=== PATIENT | female | born 1945 | race Caucasian/White ===

== ENCOUNTER 2021-03-08 10:55 | Outpatient (CLI) | payer MEDICARE, OTHER | END 2021-03-08 10:56 | disposition home or self-care (01) | LOC: CSHMAMMO 10:55 | PROVIDERS: ATTEND Family Medicine | DX: Z12.31 Encounter for screening mammogram for malignant neoplasm of breast (principal) | CPT/HCPCS: 77063; 77067 ==

== ENCOUNTER 2021-03-29 20:55 | Inpatient (IN) | payer MEDICARE, OTHER ==
[2021-03-29 22:22] LABS: #Monocytes 0.6 10x3/uL (0.0-1.1); #Neutrophils 11.1 10x3/uL (1.5-8.4); %Basophils 0.2 % (0.0-2.0); %Lymphocytes 12.7 % (18.0-47.0); %Monocytes 4.1 % (0.0-10.0); %Neutrophils 82.6 % (40.0-75.0); Hemoglobin 8.3 g/dL (12.0-15.5); Mean Corpuscular HGB CONC 31.8 g/dL (32.0-36.0); Mean Corpuscular Hemoglobin 28.6 pg (27.0-33.0); Mean Platelet Volume 9.8 fl (7.4-10.4); Platelet Count 267 10x3/uL (150-450); RBC Distribution Width 14.3 % (11.5-14.5); White Blood Cell (WBC) Count 13.4 10x3/uL (3.5-10.5)
[2021-03-29] MEDS ORDERED: Ondansetron PF 4 MG/2 ML Vial ONE (22:29)
[2021-03-29 22:37] LABS: ALT (SGPT) 9 U/L (8-55); AST (SGOT) 9 U/L (5-34); Albumin 3.5 g/dL (3.4-4.8); Alkaline Phosphatase 63 U/L (40-110); Anion Gap 16 mmol/L (10-20); BUN (Urea Nitrogen) 59 mg/dL (9.8-20.1); Bilirubin, Total 0.2 mg/dL (0.2-1.2); Calc. Creatinine Clearance 0 mL/min (70-130); Calcium 8.3 mg/dL (7.8-10.44); Carbon Dioxide 20 mmol/L (23-31); Chloride 105 mmol/L (98-107); Glucose 153 mg/dL (83-110); Potassium 4.4 mmol/L (3.5-5.1); Protein, Total 5.5 g/dL (5.8-8.1); Sodium 137 mmol/L (136-145)
[2021-03-29 22:57] LABS: CKMB 1.6 ng/mL (0-6.6)
[2021-03-30] MEDS ORDERED: Pantoprazole 40 MG VIAL ONE (00:24)
[2021-03-30] MEDS ORDERED: Guaifenesin DM 100-10/5 ML UDCUP PO PRN (03:25)
[2021-03-30] MEDS ORDERED: Calcium Carbonate 500 MG ChewTAB PO PRN (03:25)
[2021-03-30] MEDS ORDERED: Acetaminophen 325 MG TAB PO PRN (03:25)
[2021-03-30] MEDS ORDERED: HYDROcodone/Acetaminophen 5/325 mg Tablet PO PRN (03:25)
[2021-03-30] MEDS ORDERED: Zolpidem Tartrate 5 MG TAB PO PRN (03:25)
[2021-03-30] MEDS ORDERED: Sodium Chloride 0.9% 1,000 ML IV SCH (03:30)
[2021-03-30] MEDS ORDERED: Dextrose 5%-Lactated Ringers 1,000 ML IV SCH (03:30)
[2021-03-30] MEDS ORDERED: Pantoprazole 80 MG in Sodium Chloride 0.9% 100 ML IVPB SCH (03:30)
[2021-03-30 04:48] LABS: SARS-CoV-2 NAA Rapid Test Not Detected (NotDetected)
[2021-03-30 05:56] LABS: Anion Gap 11 mmol/L (10-20); BUN (Urea Nitrogen) 46 mg/dL (9.8-20.1); Calc. Creatinine Clearance 0 mL/min (70-130); Calcium 7.7 mg/dL (7.8-10.44); Carbon Dioxide 20 mmol/L (23-31); Chloride 111 mmol/L (98-107); Glucose 127 mg/dL (83-110); Potassium 3.8 mmol/L (3.5-5.1); Sodium 138 mmol/L (136-145)
[2021-03-30 06:06] LABS: #Monocytes 0.6 10x3/uL (0.0-1.1); #Neutrophils 8.4 10x3/uL (1.5-8.4); %Basophils 0.3 % (0.0-2.0); %Lymphocytes 15.7 % (18.0-47.0); %Monocytes 5.8 % (0.0-10.0); %Neutrophils 77.7 % (40.0-75.0); CKMB 1.8 ng/mL (0-6.6); Mean Corpuscular HGB CONC 32.6 g/dL (32.0-36.0); Mean Corpuscular Hemoglobin 28.8 pg (27.0-33.0); Mean Corpuscular Volume 88.5 fl (81.6-98.3); Mean Platelet Volume 9.8 fl (7.4-10.4); Platelet Count 225 10x3/uL (150-450); RBC Distribution Width 14.3 % (11.5-14.5); Red Blood Cell (RBC) Count 2.43 10x6/uL (3.90-5.03); White Blood Cell (WBC) Count 10.9 10x3/uL (3.5-10.5)
[2021-03-30 10:22] LABS: CKMB 3.1 ng/mL (0-6.6)
[2021-03-30 14:18] LABS: #Monocytes 0.7 10x3/uL (0.0-1.1); #Neutrophils 6.7 10x3/uL (1.5-8.4); %Basophils 0.4 % (0.0-2.0); %Eosinophils 0.1 % (0.0-6.0); %Lymphocytes 20.2 % (18.0-47.0); %Neutrophils 71.9 % (40.0-75.0); Hemoglobin 7.8 g/dL (12.0-15.5); Mean Corpuscular HGB CONC 32.2 g/dL (32.0-36.0); Mean Corpuscular Hemoglobin 28.9 pg (27.0-33.0); Mean Corpuscular Volume 89.6 fl (81.6-98.3); Mean Platelet Volume 9.6 fl (7.4-10.4); Platelet Count 221 10x3/uL (150-450); RBC Distribution Width 14.6 % (11.5-14.5); White Blood Cell (WBC) Count 9.3 10x3/uL (3.5-10.5)
[2021-03-30 14:54] LABS: CKMB 7.9 ng/mL (0-6.6)
[2021-03-30 16:05] LABS: #Monocytes 0.6 10x3/uL (0.0-1.1); #Neutrophils 6.9 10x3/uL (1.5-8.4); %Basophils 0.3 % (0.0-2.0); %Eosinophils 0.1 % (0.0-6.0); %Lymphocytes 21.3 % (18.0-47.0); %Monocytes 6.4 % (0.0-10.0); %Neutrophils 71.3 % (40.0-75.0); Hemoglobin 7.7 g/dL (12.0-15.5); Mean Corpuscular HGB CONC 32.1 g/dL (32.0-36.0); Mean Corpuscular Hemoglobin 29.1 pg (27.0-33.0); Mean Corpuscular Volume 90.6 fl (81.6-98.3); Mean Platelet Volume 9.8 fl (7.4-10.4); Platelet Count 222 10x3/uL (150-450); RBC Distribution Width 14.7 % (11.5-14.5); Red Blood Cell (RBC) Count 2.65 10x6/uL (3.90-5.03); White Blood Cell (WBC) Count 9.6 10x3/uL (3.5-10.5)
[2021-03-30] MEDS: Dextrose 5 % And 0.9 % NaCl 1,000 ML IV SCH (17:41)
[2021-03-30] MEDS: Pantoprazole 80 MG in Sodium Chloride 0.9% 100 ML IVPB SCH (20:38)
[2021-03-30 21:08] VITALS: BMI 42.0
[2021-03-30 21:10] LABS: #Monocytes 0.7 10x3/uL (0.0-1.1); #Neutrophils 7.2 10x3/uL (1.5-8.4); %Basophils 0.4 % (0.0-2.0); %Eosinophils 0.1 % (0.0-6.0); %Lymphocytes 21.3 % (18.0-47.0); %Monocytes 6.7 % (0.0-10.0); Mean Corpuscular HGB CONC 33.5 g/dL (32.0-36.0); Mean Corpuscular Hemoglobin 29.7 pg (27.0-33.0); Mean Corpuscular Volume 88.8 fl (81.6-98.3); Mean Platelet Volume 9.6 fl (7.4-10.4); Platelet Count 222 10x3/uL (150-450); RBC Distribution Width 14.8 % (11.5-14.5); Red Blood Cell (RBC) Count 2.69 10x6/uL (3.90-5.03); White Blood Cell (WBC) Count 10.1 10x3/uL (3.5-10.5)
[2021-03-30] MEDS ORDERED: Metoprolol Tartrate 25 MG TAB PO SCH (21:30)
[2021-03-30 21:35] LABS: CKMB 18.6 ng/mL (0-6.6)
[2021-03-31 01:46] LABS: CKMB 19.5 ng/mL (0-6.6)
[2021-03-31] MEDS: Dextrose 5 % And 0.9 % NaCl 1,000 ML IV SCH (04:06)
[2021-03-31] MEDS: Pantoprazole 80 MG in Sodium Chloride 0.9% 100 ML IVPB SCH ×2 (06:19→21:25)
[2021-03-31] MEDS ORDERED: Metoprolol Tartrate 25 MG TAB PO SCH ×2 (06:45→09:00)
[2021-03-31 07:01] LABS: #Monocytes 0.7 10x3/uL (0.0-1.1); #Neutrophils 5.4 10x3/uL (1.5-8.4); %Basophils 0.5 % (0.0-2.0); %Eosinophils 0.5 % (0.0-6.0); %Lymphocytes 26.2 % (18.0-47.0); %Monocytes 8.1 % (0.0-10.0); Hemoglobin 8.2 g/dL (12.0-15.5); Mean Corpuscular HGB CONC 33.3 g/dL (32.0-36.0); Mean Corpuscular Hemoglobin 29.9 pg (27.0-33.0); Mean Corpuscular Volume 89.8 fl (81.6-98.3); Mean Platelet Volume 9.9 fl (7.4-10.4); Platelet Count 221 10x3/uL (150-450); Red Blood Cell (RBC) Count 2.74 10x6/uL (3.90-5.03); White Blood Cell (WBC) Count 8.4 10x3/uL (3.5-10.5)
[2021-03-31 07:24] LABS: Anion Gap 15 mmol/L (10-20); BUN (Urea Nitrogen) 20 mg/dL (9.8-20.1); Calc. Creatinine Clearance 89 mL/min (70-130); Calcium 7.8 mg/dL (7.8-10.44); Carbon Dioxide 19 mmol/L (23-31); Chloride 112 mmol/L (98-107); Glucose 122 mg/dL (83-110); Magnesium 2.1 mg/dL (1.6-2.6); Potassium 3.8 mmol/L (3.5-5.1); Sodium 142 mmol/L (136-145)
[2021-03-31] MEDS ORDERED: Midazolam HCl 2 mg/2 ml Vial ONE (13:54)
[2021-03-31] MEDS ORDERED: PROPOFOL 20 ML ONE (13:54)
[2021-03-31] MEDS: Ondansetron PF 4 MG/2 ML Vial IVP PRN (18:30)
[2021-03-31] MEDS: Atorvastatin Calcium 40 MG TAB PO SCH (21:25)
[2021-03-31] MEDS: Metoprolol Tartrate 25 MG TAB PO SCH (21:26)
[2021-03-31] MEDS: Pantoprazole 40 MG VIAL IVP SCH (21:38)
[2021-04-01] MEDS: Ondansetron PF 4 MG/2 ML Vial IVP PRN (00:49)
[2021-04-01] MEDS: Dextrose 5 % And 0.9 % NaCl 1,000 ML IV SCH ×3 (00:52→17:28)
[2021-04-01 05:47] LABS: Anion Gap 17 mmol/L (10-20); BUN (Urea Nitrogen) 15 mg/dL (9.8-20.1); Calc. Creatinine Clearance 102 mL/min (70-130); Carbon Dioxide 17 mmol/L (23-31); Chloride 113 mmol/L (98-107); Glucose 126 mg/dL (83-110); Sodium 143 mmol/L (136-145)
[2021-04-01 05:58] LABS: #Basophils 0.1 10x3/uL (0.0-0.2); #Neutrophils 14.9 10x3/uL (1.5-8.4); %Basophils 0.6 % (0.0-2.0); %Eosinophils 0.1 % (0.0-6.0); %Lymphocytes 9.5 % (18.0-47.0); %Monocytes 5.8 % (0.0-10.0); %Neutrophils 82.9 % (40.0-75.0); Hemoglobin 9.4 g/dL (12.0-15.5); Mean Corpuscular Hemoglobin 29.6 pg (27.0-33.0); Mean Corpuscular Volume 95.3 fl (81.6-98.3); Mean Platelet Volume 10.1 fl (7.4-10.4); Platelet Count 216 10x3/uL (150-450); RBC Distribution Width 15.3 % (11.5-14.5); Red Blood Cell (RBC) Count 3.18 10x6/uL (3.90-5.03)
[2021-04-01 06:28] LABS: Potassium 3.9 mmol/L (3.5-5.1)
[2021-04-01] MEDS ORDERED: FLU VACC QS2021-22(65YR UP)/PF 240 MCG/0.7 ML SYRINGE IM ONE (09:00)
[2021-04-01] MEDS: Metoprolol Tartrate 25 MG TAB PO SCH ×2 (09:13→21:11)
[2021-04-01] MEDS ORDERED: Piperacillin/Tazobactam 3.375 GM in Sodium Chloride 0.9% 100 ML IVPB SCH ×2 (09:30→12:00)
[2021-04-01] MEDS ORDERED: Vancomycin 1 GM in Premix Bag 1 BAG IVPB SCH (09:30)
[2021-04-01] MEDS: Pantoprazole 40 MG VIAL IVP SCH ×2 (09:39→21:12)
[2021-04-01] MEDS ORDERED: VANCOMYCIN 2 GRAM/400 ML BAG 2 GM in Premix Bag 1 BAG IVPB SCH (10:00)
[2021-04-01] MEDS: Piperacillin/Tazobactam 3.375 GM in Sodium Chloride 0.9% 100 ML IVPB SCH (16:01)
[2021-04-01] MEDS: Atorvastatin Calcium 40 MG TAB PO SCH (21:11)
[2021-04-02] MEDS: Piperacillin/Tazobactam 3.375 GM in Sodium Chloride 0.9% 100 ML IVPB SCH ×3 (00:31→16:35)
[2021-04-02] MEDS: Dextrose 5 % And 0.9 % NaCl 1,000 ML IV SCH ×3 (04:47→12:28)
[2021-04-02 06:24] LABS: Bilirubin Neg (Negative); Blood, Urine 150 (Negative); Clarity Cloudy (Clear); Glucose, Urine (Dipstick) Normal (Negative); Ketone, Urine Negative (Negative); Leukocyte Negative (Negative); Nitrite Negative (Negative); Protein, Urine (Dipstick) 15 mg/dl (Neg-Trace); Specific Gravity, Urine 1.025 (1.002-1.036); Urobilinogen Normal mg/dL (Less than 2)
[2021-04-02 06:35] LABS: Bacteria/HPF Rare-Few HPF (None Seen); RBC/HPF 0-3 HPF (0-3); Squamous Epithelial 0-3 HPF (0-3); Urine Culture Reflex No No; WBC/HPF 0-3 HPF (0-3)
[2021-04-02 06:45] LABS: Anion Gap 12 mmol/L (10-20); BUN (Urea Nitrogen) 10 mg/dL (9.8-20.1); Calc. Creatinine Clearance 104 mL/min (70-130); Calcium 7.4 mg/dL (7.8-10.44); Carbon Dioxide 20 mmol/L (23-31); Chloride 111 mmol/L (98-107); Glucose 126 mg/dL (83-110); Magnesium 1.9 mg/dL (1.6-2.6); Potassium 3.3 mmol/L (3.5-5.1); Sodium 140 mmol/L (136-145)
[2021-04-02 07:43] LABS: #Monocytes 1.2 10x3/uL (0.0-1.1); #Neutrophils 14.8 10x3/uL (1.5-8.4); %Basophils 0.2 % (0.0-2.0); %Eosinophils 0.2 % (0.0-6.0); %Lymphocytes 11.8 % (18.0-47.0); %Monocytes 6.7 % (0.0-10.0); %Neutrophils 80.7 % (40.0-75.0); Hemoglobin 8.2 g/dL (12.0-15.5); Mean Corpuscular HGB CONC 32.8 g/dL (32.0-36.0); Mean Corpuscular Hemoglobin 29.5 pg (27.0-33.0); Mean Corpuscular Volume 89.9 fl (81.6-98.3); Mean Platelet Volume 10.8 fl (7.4-10.4); Platelet Count 169 10x3/uL (150-450); RBC Distribution Width 15.6 % (11.5-14.5); Red Blood Cell (RBC) Count 2.78 10x6/uL (3.90-5.03); White Blood Cell (WBC) Count 18.3 10x3/uL (3.5-10.5)
[2021-04-02] MEDS: Pantoprazole 40 MG VIAL IVP SCH ×2 (08:29→22:21)
[2021-04-02] MEDS: Metoprolol Tartrate 25 MG TAB PO SCH ×2 (08:29→22:20)
[2021-04-02] MEDS ORDERED: Potassium Chloride 20 MEQ TAB PO SCH ×3 (09:00→16:00)
[2021-04-02] MEDS ORDERED: Vancomycin 1.5 GRAM/300 ML BAG 1.5 GM in Premix Bag 1 BAG IVPB SCH (11:00)
[2021-04-02] MEDS: Atorvastatin Calcium 40 MG TAB PO SCH (22:20)
[2021-04-03] MEDS: Piperacillin/Tazobactam 3.375 GM in Sodium Chloride 0.9% 100 ML IVPB SCH ×2 (00:48→09:18)
[2021-04-03 05:00] LABS: #Basophils 0.1 10x3/uL (0.0-0.2); #Eosinphils 0.2 10x3/uL (0.0-0.5); #Monocytes 0.7 10x3/uL (0.0-1.1); #Neutrophils 10.3 10x3/uL (1.5-8.4); %Basophils 0.4 % (0.0-2.0); %Eosinophils 1.3 % (0.0-6.0); %Lymphocytes 16.7 % (18.0-47.0); %Monocytes 4.9 % (0.0-10.0); %Neutrophils 76.2 % (40.0-75.0); Hemoglobin 7.6 g/dL (12.0-15.5); Mean Corpuscular HGB CONC 32.6 g/dL (32.0-36.0); Mean Corpuscular Hemoglobin 29.5 pg (27.0-33.0); Mean Corpuscular Volume 90.3 fl (81.6-98.3); Mean Platelet Volume 9.6 fl (7.4-10.4); Platelet Count 221 10x3/uL (150-450); RBC Distribution Width 15.5 % (11.5-14.5); Red Blood Cell (RBC) Count 2.58 10x6/uL (3.90-5.03); White Blood Cell (WBC) Count 13.6 10x3/uL (3.5-10.5)
[2021-04-03 05:12] LABS: Anion Gap 10 mmol/L (10-20); BUN (Urea Nitrogen) 8 mg/dL (9.8-20.1); Calc. Creatinine Clearance 104 mL/min (70-130); Calcium 7.4 mg/dL (7.8-10.44); Carbon Dioxide 23 mmol/L (23-31); Chloride 112 mmol/L (98-107); Glucose 111 mg/dL (83-110); Potassium 3.3 mmol/L (3.5-5.1); Sodium 142 mmol/L (136-145)
[2021-04-03] MEDS: Metoprolol Tartrate 25 MG TAB PO SCH (09:10)
[2021-04-03 09:35] LABS: Vancomycin, Random 6.1 ug/mL (See Comment)
[2021-04-03] MEDS ORDERED: Potassium Chloride 20 MEQ TAB PO SCH ×3 (12:30→17:00)
[2021-04-03 19:42] VITALS: BP 109/55; TEMP 99.8
== END 2021-04-03 19:10 | disposition home or self-care (01) | DRG 377 ==
LOC: CSHERS 20:55 → CSHERHOLD 03-30 02:05 → CSHTELE 03-30 16:45
PROVIDERS: ADMIT Student in an Organized Health Care Education/Training Program; ATTEND Hospitalist
PROC: 30233N1 Transfusion of Nonautologous Red Blood Cells into Peripheral Vein, Percutaneous Approach (ICD-10-PCS; 2021-03-30)
PROC: 0DB68ZX Excision of Stomach, Via Natural or Artificial Opening Endoscopic, Diagnostic (ICD-10-PCS; principal; 2021-03-31)
PROC: 0DB78ZX Excision of Stomach, Pylorus, Via Natural or Artificial Opening Endoscopic, Diagnostic (ICD-10-PCS; 2021-03-31)
DX: K25.4 Chronic or unspecified gastric ulcer with hemorrhage (principal); I21.A1 Myocardial infarction type 2; D62 Acute posthemorrhagic anemia; D72.829 Elevated white blood cell count, unspecified; F41.9 Anxiety disorder, unspecified; N18.2 Chronic kidney disease, stage 2 (mild); I12.9 Hypertensive chronic kidney disease with stage 1 through stage 4 chronic kidney disease, or unspecified chronic kidney disease; I25.10 Atherosclerotic heart disease of native coronary artery without angina pectoris; I65.29 Occlusion and stenosis of unspecified carotid artery; E78.2 Mixed hyperlipidemia; Z20.822 Contact with and (suspected) exposure to COVID-19; K29.60 Other gastritis without bleeding; Z79.82 Long term (current) use of aspirin; Z79.899 Other long term (current) drug therapy; Z86.73 Personal history of transient ischemic attack (TIA), and cerebral infarction without residual deficits; Z90.710 Acquired absence of both cervix and uterus
CPT/HCPCS: 36415; 36416; 36430; 80048; 80053; 80202; 81001; 82553; 83735; 84484; 85025; 86850; 86900; 86901; 87040; 87804; 88305; 88312; 88342; 93005; 93010; 93306; 96365; 96366; 96375; 96376; C9113; J2250; J2405; J2543; J2704; J3370; J3475; J3490; J7042; P9016; U0002

== ENCOUNTER 2021-04-18 10:20 | Outpatient (CLI) | payer MEDICARE, OTHER | END 2021-04-18 10:21 | disposition home or self-care (01) | LOC: CSHULT 10:20 | PROVIDERS: ATTEND Family Medicine | DX: M79.89 Other specified soft tissue disorders (principal); M79.605 Pain in left leg; I82.432 Acute embolism and thrombosis of left popliteal vein; I82.812 Embolism and thrombosis of superficial veins of left lower extremity ==

== ENCOUNTER 2021-04-18 11:34 | Emergency (ER) | payer MEDICARE, OTHER | END 2021-04-18 13:40 | disposition home or self-care (01) | LOC: CSHERS 11:34 | DX: I82.402 Acute embolism and thrombosis of unspecified deep veins of left lower extremity (principal); I10 Essential (primary) hypertension; Z86.73 Personal history of transient ischemic attack (TIA), and cerebral infarction without residual deficits | CPT/HCPCS: 99283 ==

== ENCOUNTER 2021-04-19 10:36 | Inpatient (IN) | payer MEDICARE, OTHER ==
[2021-04-19 11:39] LABS: #Basophils 0.1 10x3/uL (0.0-0.2); #Monocytes 0.8 10x3/uL (0.0-1.1); #Neutrophils 7.3 10x3/uL (1.5-8.4); %Basophils 0.5 % (0.0-2.0); %Eosinophils 0.2 % (0.0-6.0); %Lymphocytes 13.4 % (18.0-47.0); %Monocytes 8.8 % (0.0-10.0); %Neutrophils 76.8 % (40.0-75.0); Hemoglobin 10.6 g/dL (12.0-15.5); Mean Corpuscular HGB CONC 31.5 g/dL (32.0-36.0); Mean Corpuscular Hemoglobin 27.6 pg (27.0-33.0); Mean Corpuscular Volume 87.8 fl (81.6-98.3); Mean Platelet Volume 8.9 fl (7.4-10.4); Platelet Count 345 10x3/uL (150-450); RBC Distribution Width 14.6 % (11.5-14.5); Red Blood Cell (RBC) Count 3.84 10x6/uL (3.90-5.03); White Blood Cell (WBC) Count 9.5 10x3/uL (3.5-10.5)
[2021-04-19 11:58] LABS: ALT (SGPT) 12 U/L (8-55); AST (SGOT) 12 U/L (5-34); Alkaline Phosphatase 92 U/L (40-110); Anion Gap 15 mmol/L (10-20); BUN (Urea Nitrogen) 21 mg/dL (9.8-20.1); Bilirubin, Total 0.4 mg/dL (0.2-1.2); Calc. Creatinine Clearance 0 mL/min (70-130); Calcium 9.1 mg/dL (7.8-10.44); Carbon Dioxide 23 mmol/L (23-31); Chloride 105 mmol/L (98-107); Globulin 3.3 g/dL (2.4-3.5); Glucose 126 mg/dL (83-110); Protein, Total 7.3 g/dL (5.8-8.1); Sodium 139 mmol/L (136-145)
[2021-04-19 12:02] LABS: PTT 24.6 sec (22.0-33.0); Prothrombin Time 11.4 sec (9.5-12.1)
[2021-04-19 12:19] LABS: CKMB 1.7 ng/mL (0-6.6)
[2021-04-19] MEDS ORDERED: Heparin 5,000 UNITS/ML VIAL ONE (12:51)
[2021-04-19] MEDS ORDERED: Heparin 25,000 units/D5W 500 ML ONE (13:06)
[2021-04-19 15:53] LABS: SARS-CoV-2 NAA Rapid Test Not Detected (NotDetected)
[2021-04-19] MEDS ORDERED: Acetaminophen 325 MG TAB PO PRN (18:04)
[2021-04-19] MEDS ORDERED: Acetaminophen 650 MG Suppository PR PRN (18:04)
[2021-04-19 19:07] LABS: CKMB 1.2 ng/mL (0-6.6)
[2021-04-19 22:04] VITALS: BMI 42.6
[2021-04-19] MEDS: Heparin 10,000 UNITS/ 10 ML VIAL SLOW IVP SCH (22:51)
[2021-04-20 05:37] LABS: #Basophils 0.1 10x3/uL (0.0-0.2); #Eosinphils 0.1 10x3/uL (0.0-0.5); #Monocytes 0.7 10x3/uL (0.0-1.1); #Neutrophils 4.4 10x3/uL (1.5-8.4); %Basophils 1.1 % (0.0-2.0); %Eosinophils 1.2 % (0.0-6.0); %Lymphocytes 36.8 % (18.0-47.0); %Monocytes 8.1 % (0.0-10.0); %Neutrophils 52.4 % (40.0-75.0); Hemoglobin 9.2 g/dL (12.0-15.5); Mean Corpuscular HGB CONC 30.7 g/dL (32.0-36.0); Mean Corpuscular Hemoglobin 27.3 pg (27.0-33.0); Mean Platelet Volume 9.5 fl (7.4-10.4); Platelet Count 334 10x3/uL (150-450); RBC Distribution Width 14.6 % (11.5-14.5); Red Blood Cell (RBC) Count 3.37 10x6/uL (3.90-5.03); White Blood Cell (WBC) Count 8.4 10x3/uL (3.5-10.5)
[2021-04-20 05:39] LABS: Anion Gap 13 mmol/L (10-20); BUN (Urea Nitrogen) 23 mg/dL (9.8-20.1); Calc. Creatinine Clearance 68 mL/min (70-130); Calcium 8.5 mg/dL (7.8-10.44); Carbon Dioxide 23 mmol/L (23-31); Chloride 107 mmol/L (98-107); Glucose 128 mg/dL (83-110); Potassium 3.9 mmol/L (3.5-5.1); Sodium 139 mmol/L (136-145)
[2021-04-20] MEDS: Atorvastatin Calcium 40 MG TAB PO SCH (08:26)
[2021-04-20] MEDS: Heparin 10,000 UNITS/ 10 ML VIAL SLOW IVP SCH ×2 (12:16→20:06)
[2021-04-20] MEDS: Heparin 25,000 units/D5W 500 ML IVPB SCH (12:18)
[2021-04-20] MEDS: AMOXicillin 250 MG CAP PO SCH (20:05)
[2021-04-20] MEDS: Clarithromycin 250 MG TAB PO SCH (20:05)
[2021-04-20] MEDS ORDERED: Clarithromycin 500 MG TAB PO SCH (21:00)
[2021-04-21 02:32] LABS: PTT 82.8 sec (22.0-33.0)
[2021-04-21 04:57] LABS: #Basophils 0.1 10x3/uL (0.0-0.2); #Eosinphils 0.2 10x3/uL (0.0-0.5); #Monocytes 0.7 10x3/uL (0.0-1.1); #Neutrophils 4.6 10x3/uL (1.5-8.4); %Basophils 0.9 % (0.0-2.0); %Eosinophils 2.1 % (0.0-6.0); %Lymphocytes 33.9 % (18.0-47.0); %Monocytes 8.4 % (0.0-10.0); %Neutrophils 54.3 % (40.0-75.0); Hemoglobin 8.8 g/dL (12.0-15.5); Mean Corpuscular HGB CONC 30.4 g/dL (32.0-36.0); Mean Corpuscular Hemoglobin 27.4 pg (27.0-33.0); Mean Platelet Volume 9.4 fl (7.4-10.4); Platelet Count 361 10x3/uL (150-450); RBC Distribution Width 14.5 % (11.5-14.5); Red Blood Cell (RBC) Count 3.21 10x6/uL (3.90-5.03); White Blood Cell (WBC) Count 8.4 10x3/uL (3.5-10.5)
[2021-04-21 05:01] LABS: Anion Gap 16 mmol/L (10-20); BUN (Urea Nitrogen) 18 mg/dL (9.8-20.1); Calc. Creatinine Clearance 74 mL/min (70-130); Calcium 8.2 mg/dL (7.8-10.44); Carbon Dioxide 21 mmol/L (23-31); Chloride 105 mmol/L (98-107); Glucose 127 mg/dL (83-110); Potassium 4.1 mmol/L (3.5-5.1); Sodium 138 mmol/L (136-145)
[2021-04-21] MEDS: Heparin 25,000 units/D5W 500 ML IVPB SCH (06:59)
[2021-04-21] MEDS: AMOXicillin 250 MG CAP PO SCH ×2 (07:38→20:16)
[2021-04-21] MEDS: Clarithromycin 250 MG TAB PO SCH ×2 (07:39→20:16)
[2021-04-21] MEDS: Atorvastatin Calcium 40 MG TAB PO SCH (07:40)
[2021-04-21] MEDS: Heparin 10,000 UNITS/ 10 ML VIAL SLOW IVP SCH (09:47)
[2021-04-21 17:11] LABS: PTT 77.3 sec (22.0-33.0)
[2021-04-21] MEDS: Apixaban 5 MG TAB PO SCH (20:16)
[2021-04-22 05:30] LABS: #Basophils 0.1 10x3/uL (0.0-0.2); #Eosinphils 0.3 10x3/uL (0.0-0.5); #Monocytes 0.7 10x3/uL (0.0-1.1); #Neutrophils 4.5 10x3/uL (1.5-8.4); %Basophils 0.9 % (0.0-2.0); %Eosinophils 3.2 % (0.0-6.0); %Lymphocytes 30.7 % (18.0-47.0); Hemoglobin 9.7 g/dL (12.0-15.5); Mean Corpuscular HGB CONC 30.7 g/dL (32.0-36.0); Mean Corpuscular Hemoglobin 27.3 pg (27.0-33.0); Mean Platelet Volume 9.1 fl (7.4-10.4); Platelet Count 343 10x3/uL (150-450); RBC Distribution Width 14.3 % (11.5-14.5); Red Blood Cell (RBC) Count 3.55 10x6/uL (3.90-5.03); White Blood Cell (WBC) Count 8.1 10x3/uL (3.5-10.5)
[2021-04-22 05:41] LABS: Anion Gap 15 mmol/L (10-20); BUN (Urea Nitrogen) 15 mg/dL (9.8-20.1); Calc. Creatinine Clearance 86 mL/min (70-130); Calcium 8.5 mg/dL (7.8-10.44); Carbon Dioxide 21 mmol/L (23-31); Chloride 105 mmol/L (98-107); Glucose 96 mg/dL (83-110); Potassium 4.2 mmol/L (3.5-5.1); Sodium 137 mmol/L (136-145)
[2021-04-22] MEDS: Atorvastatin Calcium 40 MG TAB PO SCH (08:29)
[2021-04-22] MEDS: AMOXicillin 250 MG CAP PO SCH ×2 (08:29→21:45)
[2021-04-22] MEDS: Apixaban 5 MG TAB PO SCH ×2 (08:29→21:45)
[2021-04-22] MEDS: Clarithromycin 250 MG TAB PO SCH ×2 (08:35→21:46)
[2021-04-22] MEDS ORDERED: Lisinopril 20 MG TAB PO SCH (12:30)
[2021-04-23 04:53] LABS: #Basophils 0.1 10x3/uL (0.0-0.2); #Eosinphils 0.2 10x3/uL (0.0-0.5); #Monocytes 0.7 10x3/uL (0.0-1.1); #Neutrophils 4.1 10x3/uL (1.5-8.4); %Basophils 0.7 % (0.0-2.0); %Eosinophils 2.5 % (0.0-6.0); %Lymphocytes 30.3 % (18.0-47.0); %Neutrophils 56.1 % (40.0-75.0); Hemoglobin 9.5 g/dL (12.0-15.5); Mean Corpuscular HGB CONC 31.5 g/dL (32.0-36.0); Mean Corpuscular Hemoglobin 27.5 pg (27.0-33.0); Mean Corpuscular Volume 87.3 fl (81.6-98.3); Mean Platelet Volume 9.1 fl (7.4-10.4); Platelet Count 351 10x3/uL (150-450); RBC Distribution Width 14.4 % (11.5-14.5); Red Blood Cell (RBC) Count 3.46 10x6/uL (3.90-5.03); White Blood Cell (WBC) Count 7.2 10x3/uL (3.5-10.5)
[2021-04-23 05:07] LABS: Anion Gap 13 mmol/L (10-20); BUN (Urea Nitrogen) 15 mg/dL (9.8-20.1); Calc. Creatinine Clearance 85 mL/min (70-130); Calcium 8.4 mg/dL (7.8-10.44); Carbon Dioxide 22 mmol/L (23-31); Chloride 105 mmol/L (98-107); Glucose 109 mg/dL (83-110); Sodium 136 mmol/L (136-145)
[2021-04-23] MEDS: Polyethylene Glycol 3350 17 GM Packet PO SCH (09:09)
[2021-04-23] MEDS: AMOXicillin 250 MG CAP PO SCH ×2 (09:11→20:56)
[2021-04-23] MEDS: Apixaban 5 MG TAB PO SCH ×2 (09:12→20:57)
[2021-04-23] MEDS: Lisinopril 20 MG TAB PO SCH (09:13)
[2021-04-23] MEDS: Atorvastatin Calcium 40 MG TAB PO SCH (09:14)
[2021-04-23] MEDS: Clarithromycin 250 MG TAB PO SCH ×2 (09:21→20:57)
[2021-04-24] MEDS: Apixaban 5 MG TAB PO SCH (07:48)
[2021-04-24] MEDS: Lisinopril 20 MG TAB PO SCH (07:48)
[2021-04-24] MEDS: Polyethylene Glycol 3350 17 GM Packet PO SCH (07:49)
[2021-04-24] MEDS: AMOXicillin 250 MG CAP PO SCH (07:49)
[2021-04-24] MEDS: Atorvastatin Calcium 40 MG TAB PO SCH (07:49)
[2021-04-24 08:31] LABS: Hemoglobin 10.5 g/dL (12.0-15.5); Platelet Count 324 10x3/uL (150-450)
[2021-04-24] MEDS: Clarithromycin 250 MG TAB PO SCH (08:32)
[2021-04-24 16:38] VITALS: BP 126/58; TEMP 97.8
== END 2021-04-24 18:05 | disposition home or self-care (01) | DRG 175 ==
LOC: CSHERS 10:36 → CSHTELE 10:37
PROVIDERS: ADMIT Internal Medicine; ATTEND Family Medicine
DX: I26.99 Other pulmonary embolism without acute cor pulmonale (principal); J96.01 Acute respiratory failure with hypoxia; I24.8 Other forms of acute ischemic heart disease; I82.433 Acute embolism and thrombosis of popliteal vein, bilateral; Z20.822 Contact with and (suspected) exposure to COVID-19; D64.9 Anemia, unspecified; I10 Essential (primary) hypertension; E78.5 Hyperlipidemia, unspecified; I25.10 Atherosclerotic heart disease of native coronary artery without angina pectoris; E66.9 Obesity, unspecified; I27.20 Pulmonary hypertension, unspecified; I65.29 Occlusion and stenosis of unspecified carotid artery; E78.2 Mixed hyperlipidemia; K25.9 Gastric ulcer, unspecified as acute or chronic, without hemorrhage or perforation; Z86.73 Personal history of transient ischemic attack (TIA), and cerebral infarction without residual deficits; Z79.899 Other long term (current) drug therapy; Z88.2 Allergy status to sulfonamides; Z90.710 Acquired absence of both cervix and uterus; Z98.49 Cataract extraction status, unspecified eye; Z68.37 Body mass index [BMI] 37.0-37.9, adult
CPT/HCPCS: 36415; 71275; 80048; 80053; 82553; 83880; 84484; 85014; 85018; 85025; 85049; 85610; 85730; 86850; 86900; 86901; 93005; 93306; 93970; 94760; J1644; U0002

== ENCOUNTER 2021-09-28 07:14 | Emergency (ER) | payer MEDICARE, OTHER | END 2021-09-28 09:37 | disposition home or self-care (01) | LOC: CSHERS 07:14 | DX: M79.662 Pain in left lower leg (principal); I10 Essential (primary) hypertension; Z86.73 Personal history of transient ischemic attack (TIA), and cerebral infarction without residual deficits; Z86.718 Personal history of other venous thrombosis and embolism | CPT/HCPCS: 93970 ==

== ENCOUNTER 2022-03-07 12:46 | Outpatient (CLI) | payer MEDICARE, OTHER ==
[2022-03-07] MEDS ORDERED: Iopamidol 300 61% 100 ML VIAL FS ONE (15:42)
== END 2022-03-07 12:47 | disposition home or self-care (01) ==
LOC: CSHCT 12:46
PROVIDERS: ATTEND Specialist
DX: R59.0 Localized enlarged lymph nodes (principal); E04.9 Nontoxic goiter, unspecified; E07.9 Disorder of thyroid, unspecified
CPT/HCPCS: 71260; 82565; Q9967

== ENCOUNTER 2023-01-08 09:06 | Outpatient (CLI) | payer MEDICARE, OTHER | END 2023-01-08 09:07 | disposition home or self-care (01) | LOC: CSHCT 09:06 | PROVIDERS: ATTEND Internal Medicine | DX: C83.34 Diffuse large B-cell lymphoma, lymph nodes of axilla and upper limb (principal) | CPT/HCPCS: 71260; 74177; 82565 ==

== ENCOUNTER 2023-04-29 11:42 | Outpatient (CLI) | payer MEDICARE, OTHER | END 2023-04-29 11:43 | disposition home or self-care (01) | LOC: CSHMAMMO 11:42 | PROVIDERS: ATTEND Nurse Practitioner Family | DX: Z12.31 Encounter for screening mammogram for malignant neoplasm of breast (principal); Z85.89 Personal history of malignant neoplasm of other organs and systems | CPT/HCPCS: 77063; 77067 ==

== ENCOUNTER 2023-12-27 10:20 | Outpatient (CLI) | payer MEDICARE, OTHER ==
[2023-12-27] MEDS ORDERED: Iopamidol 300 61% 100 ML VIAL FS ONE (15:15)
== END 2023-12-27 10:21 | disposition home or self-care (01) ==
LOC: CSHCT 10:20
PROVIDERS: ATTEND Internal Medicine
DX: C83.34 Diffuse large B-cell lymphoma, lymph nodes of axilla and upper limb (principal); R91.8 Other nonspecific abnormal finding of lung field
CPT/HCPCS: 36415; 71260; 74177; 82565; Q9967

== ENCOUNTER 2023-12-30 15:37 | Inpatient (IN) | payer MEDICARE, OTHER ==
[~2023-12-30 15:37] MED LIST: Iopamidol 370 76% 100 ML VIAL ONE
[2023-12-30 17:14] LABS: #Basophils 0.04 10x3/uL (0.0-0.2); #Eosinophils 0.09 10x3/uL (0.0-0.5); #Monocytes 0.49 10x3/uL (0.0-1.1); #Neutrophils 5.43 10x3/uL (1.5-8.4); %Basophils 0.5 % (0.0-2.0); %Eosinophils 1.1 % (0.0-6.0); %Lymphocytes 25.8 % (18.0-47.0); %Neutrophils 66.2 % (40.0-75.0); Hematocrit 34.6 % (34.9-44.5); Hemoglobin 10.7 g/dL (12.0-15.5); Mean Corpuscular HGB CONC 30.9 g/dL (32.0-36.0); Mean Corpuscular Hemoglobin 29.5 pg (27.0-33.0); Mean Corpuscular Volume 95.3 fL (81.6-98.3); Mean Platelet Volume 10.1 fL (7.4-10.4); Platelet Count 231 10x3/uL (150-450); RBC Distribution Width 16.3 % (11.5-14.5); Red Blood Cell (RBC) Count 3.63 10x6/uL (3.90-5.03); White Blood Cell (WBC) Count 8.2 10x3/uL (3.5-10.5)
[2023-12-30 17:22] LABS: ALT (SGPT) 31 U/L (8-55); AST (SGOT) 25 U/L (5-34); Albumin 3.7 g/dL (3.4-4.8); Alkaline Phosphatase 94 U/L (40-110); Anion Gap 16 mmol/L (10-20); BUN (Urea Nitrogen) 16 mg/dL (9.8-20.1); Bilirubin, Total 1.1 mg/dL (0.2-1.2); Calc. Creatinine Clearance 0 mL/min (70-130); Carbon Dioxide 22 mmol/L (23-31); Chloride 109 mmol/L (98-107); Estimated GFR 72; Globulin 2.6 g/dL (2.4-3.5); Glucose 108 mg/dL (83-110); Magnesium 1.9 mg/dL (1.6-2.6); Potassium 3.8 mmol/L (3.5-5.1); Protein, Total 6.3 g/dL (5.8-8.1); Sodium 143 mmol/L (136-145)
[2023-12-30 17:29] LABS: Troponin I 0.028 ng/mL (< 0.028)
[2023-12-30 17:49] LABS: INR-International Normal Ratio 1.2; PTT 27.3 sec (22.0-33.0); Prothrombin Time 13.2 sec (9.5-12.1)
[2023-12-30] MEDS ORDERED: Furosemide 40 MG (4 mL) VIAL ONE ×2 (17:57→19:16)
[2023-12-30] MEDS ORDERED: Nitroglycerin 0.4 MG TAB 1 EACH ONE (17:57)
[2023-12-30] MEDS ORDERED: Morphine 2 MG/ML VIAL ONE (19:02)
[2023-12-30] MEDS ORDERED: Labetalol HCl 100 MG/20 ML VIAL ONE (19:16)
[2023-12-30] MEDS ORDERED: Guaifenesin DM 100-10/5 ML UDCUP PO PRN (19:36)
[2023-12-30] MEDS ORDERED: Acetaminophen 650 MG Suppository PR PRN (19:36)
[2023-12-30] MEDS ORDERED: Calcium Carbonate 500 MG ChewTAB PO PRN (19:36)
[2023-12-30] MEDS ORDERED: Senokot S 8.6-50 MG TAB PO PRN (19:36)
[2023-12-30 22:01] VITALS: BMI 42.6
[2023-12-30] MEDS: Labetalol HCl 100 MG/20 ML VIAL SLOW IVP PRN (22:32)
[2023-12-30 22:52] LABS: Troponin I 0.026 ng/mL (< 0.028)
[2023-12-30] MEDS: Acetaminophen 325 MG TAB PO PRN (23:41)
[2023-12-30] MEDS: diphenhydrAMINE 25 MG CAP PO PRN (23:43)
[2023-12-31 04:14] LABS: #Basophils 0.01 10x3/uL (0.0-0.2); #Monocytes 0.43 10x3/uL (0.0-1.1); #Neutrophils 6.79 10x3/uL (1.5-8.4); %Basophils 0.1 % (0.0-2.0); %Lymphocytes 10.6 % (18.0-47.0); %Monocytes 5.3 % (0.0-10.0); %Neutrophils 83.6 % (40.0-75.0); Hemoglobin 11.3 g/dL (12.0-15.5); Mean Corpuscular HGB CONC 31.4 g/dL (32.0-36.0); Mean Corpuscular Hemoglobin 29.2 pg (27.0-33.0); Mean Platelet Volume 9.6 fL (7.4-10.4); Platelet Count 251 10x3/uL (150-450); RBC Distribution Width 16.1 % (11.5-14.5); Red Blood Cell (RBC) Count 3.87 10x6/uL (3.90-5.03); White Blood Cell (WBC) Count 8.1 10x3/uL (3.5-10.5)
[2023-12-31 04:28] LABS: Anion Gap 20 mmol/L (10-20); BUN (Urea Nitrogen) 17 mg/dL (9.8-20.1); Calc. Creatinine Clearance 85 mL/min (70-130); Calcium 9.1 mg/dL (7.8-10.44); Carbon Dioxide 24 mmol/L (23-31); Chloride 103 mmol/L (98-107); Estimated GFR 63; Glucose 176 mg/dL (83-110); Magnesium 2.1 mg/dL (1.6-2.6); Potassium 3.8 mmol/L (3.5-5.1); Sodium 143 mmol/L (136-145)
[2023-12-31 04:35] LABS: Troponin I 0.022 ng/mL (< 0.028)
[2023-12-31] MEDS: Furosemide 40 MG (4 mL) VIAL SLOW IVP SCH (06:24)
[2023-12-31] MEDS ORDERED: Perflutren Lipid Microspheres 1.1 MG/ML VIAL ONE (07:35)
[2023-12-31] MEDS: Nitroglycerin 2% Ointment 1 INCH/1 GM Packet TOP SCH (08:30)
[2023-12-31] MEDS ORDERED: Lisinopril 20 MG TAB PO SCH (09:00)
[2023-12-31] MEDS: FLU (Fluad Triv) TS24-25 (65UP)/MF59C/PF 45 MCG/0.5 ML Syringe IM ONE (09:16)
[2023-12-31] MEDS: Ferrous Sulfate 325 MG TAB PO SCH (09:24)
[2023-12-31] MEDS: Carvedilol 3.125 MG TAB PO SCH (09:26)
[2023-12-31] MEDS: Lisinopril 20 MG TAB PO SCH (09:26)
[2023-12-31] MEDS: Isosorbide Mononitrate 30 MG ER.TAB PO SCH (09:26)
[2023-12-31] MEDS: Potassium Chloride 20 MEQ TAB PO SCH (09:27)
[2023-12-31] MEDS: Aspirin 81 mg Enteric Coated Tablet PO SCH (09:27)
[2023-12-31] MEDS: Rivaroxaban 10 MG TAB PO SCH (09:27)
[2023-12-31] MEDS: Atorvastatin Calcium 40 MG TAB PO SCH (09:27)
[2023-12-31] MEDS: Pantoprazole DR 40 MG TAB PO SCH (09:27)
[2023-12-31] MEDS: Cyanocobalamin (Vitamin B-12) 1,000 MCG TAB PO SCH (09:27)
[2023-12-31] MEDS ORDERED: Electrolyte Replacement Protocol 1 EACH FS PRN (09:30)
[2023-12-31] MEDS: Ondansetron PF 4 MG/2 ML Vial IVP PRN (10:30)
[2023-12-31] MEDS ORDERED: Communication Order-Pharmacy FS SCH (10:45)
[2024-01-01 05:03] LABS: Phosphorus 5.2 mg/dL (2.3-4.7)
[2024-01-01] MEDS ORDERED: Adenosine 6 mg (2 mL) VIAL ONE (07:10)
[2024-01-01] MEDS ORDERED: Bivalirudin 250 MG VIAL ONE ×2 (07:10→10:14)
[2024-01-01] MEDS ORDERED: Heparin 10,000 UNITS/ 10 ML VIAL ONE (07:10)
[2024-01-01] MEDS ORDERED: fentaNYL 50 mcg/mL 1 mL Vial ONE ×2 (07:10→10:28)
[2024-01-01] MEDS ORDERED: Atropine Sulfate 1 mg/1 ml Vial ONE (07:10)
[2024-01-01] MEDS ORDERED: Lidocaine 1% (PF) 30 ML VIAL ONE (07:10)
[2024-01-01] MEDS ORDERED: Midazolam HCl 2 mg/2 ml Vial ONE ×2 (07:10→10:28)
[2024-01-01] MEDS ORDERED: Nitroglycerin 50 MG/250 ML BOT 250 ML ONE (07:10)
[2024-01-01] MEDS ORDERED: Iopamidol 300 61% 100 ML VIAL FS ONE (07:25)
[2024-01-01] MEDS ORDERED: Phenylephrine 40 MG/NS 250 ML 0 ML ONE (09:27)
[2024-01-01] MEDS ORDERED: PHENYLEPHRINE-NS 100 MCG/ML 10 ML SYRINGE ONE (09:28)
[2024-01-01] MEDS ORDERED: TICAGRELOR 90 MG TABLET ONE (10:20)
[2024-01-01 13:37] LABS: Anion Gap 20 mmol/L (10-20); BUN (Urea Nitrogen) 20 mg/dL (9.8-20.1); Calc. Creatinine Clearance 91 mL/min (70-130); Calcium 9.7 mg/dL (7.8-10.44); Carbon Dioxide 25 mmol/L (23-31); Chloride 102 mmol/L (98-107); Estimated GFR 70; Glucose 109 mg/dL (83-110); Potassium 3.9 mmol/L (3.5-5.1); Sodium 143 mmol/L (136-145)
[2024-01-01] MEDS: traMADol HCl 50 MG TAB PO PRN (14:44)
[2024-01-01] MEDS: Carvedilol 3.125 MG TAB PO SCH (17:06)
[2024-01-01] MEDS: HYDROcodone/Acetaminophen 5/325 mg Tablet PO SCH (17:07)
[2024-01-01] MEDS: Clopidogrel Bisulfate 75 MG TAB PO SCH (19:51)
[2024-01-01] MEDS: Atorvastatin Calcium 40 MG TAB PO SCH (19:52)
[2024-01-02 04:04] LABS: #Basophils 0.03 10x3/uL (0.0-0.2); #Eosinophils 0.24 10x3/uL (0.0-0.5); #Monocytes 1.04 10x3/uL (0.0-1.1); %Basophils 0.3 % (0.0-2.0); %Eosinophils 2.1 % (0.0-6.0); %Lymphocytes 13.8 % (18.0-47.0); %Monocytes 9.2 % (0.0-10.0); %Neutrophils 74.3 % (40.0-75.0); Hematocrit 36.7 % (34.9-44.5); Hemoglobin 11.1 g/dL (12.0-15.5); Mean Corpuscular HGB CONC 30.2 g/dL (32.0-36.0); Mean Corpuscular Hemoglobin 28.8 pg (27.0-33.0); Mean Corpuscular Volume 95.3 fL (81.6-98.3); Mean Platelet Volume 9.5 fL (7.4-10.4); Platelet Count 274 10x3/uL (150-450); Red Blood Cell (RBC) Count 3.85 10x6/uL (3.90-5.03); White Blood Cell (WBC) Count 11.3 10x3/uL (3.5-10.5)
[2024-01-02 05:08] LABS: ALT (SGPT) 21 U/L (8-55); AST (SGOT) 23 U/L (5-34); Albumin 3.5 g/dL (3.4-4.8); Alkaline Phosphatase 91 U/L (40-110); Anion Gap 19 mmol/L (10-20); BUN (Urea Nitrogen) 19 mg/dL (9.8-20.1); Bilirubin, Total 0.9 mg/dL (0.2-1.2); Calc. Creatinine Clearance 95 mL/min (70-130); Calcium 9.3 mg/dL (7.8-10.44); Carbon Dioxide 25 mmol/L (23-31); Chloride 101 mmol/L (98-107); Estimated GFR 74; Globulin 3.2 g/dL (2.4-3.5); Glucose 106 mg/dL (83-110); Potassium 4.2 mmol/L (3.5-5.1); Protein, Total 6.7 g/dL (5.8-8.1); Sodium 141 mmol/L (136-145)
[2024-01-02 08:31] VITALS: TEMP 97.9
[2024-01-02] MEDS: Rivaroxaban 10 MG TAB PO SCH (08:32)
[2024-01-02] MEDS: Clopidogrel Bisulfate 75 MG TAB PO SCH (08:33)
[2024-01-02 08:34] VITALS: BP 123/57
[2024-01-02 09:17] LABS: Anion Gap 19 mmol/L (10-20); BUN (Urea Nitrogen) 18 mg/dL (9.8-20.1); Calc. Creatinine Clearance 78 mL/min (70-130); Calcium 9.7 mg/dL (7.8-10.44); Carbon Dioxide 29 mmol/L (23-31); Chloride 98 mmol/L (98-107); Estimated GFR 64; Glucose 137 mg/dL (83-110); Potassium 3.4 mmol/L (3.5-5.1); Sodium 143 mmol/L (136-145)
== END 2024-01-02 13:02 | disposition home health service (06) | DRG 321 ==
LOC: CSHERS 15:37 → CSHTELE 19:36
PROVIDERS: ADMIT Student in an Organized Health Care Education/Training Program; ATTEND Family Medicine
PROC: 4A023N7 Measurement of Cardiac Sampling and Pressure, Left Heart, Percutaneous Approach (ICD-10-PCS; principal; 2024-01-01)
PROC: 027135Z Dilation of Coronary Artery, Two Arteries with Two Drug-eluting Intraluminal Devices, Percutaneous Approach (ICD-10-PCS; 2024-01-01)
PROC: B2151ZZ Fluoroscopy of Left Heart using Low Osmolar Contrast (ICD-10-PCS; 2024-01-01)
PROC: B2111ZZ Fluoroscopy of Multiple Coronary Arteries using Low Osmolar Contrast (ICD-10-PCS; 2024-01-01)
DX: I11.0 Hypertensive heart disease with heart failure (principal); I50.43 Acute on chronic combined systolic (congestive) and diastolic (congestive) heart failure; J96.01 Acute respiratory failure with hypoxia; J81.0 Acute pulmonary edema; I16.1 Hypertensive emergency; E78.5 Hyperlipidemia, unspecified; E66.01 Morbid (severe) obesity due to excess calories; K27.9 Peptic ulcer, site unspecified, unspecified as acute or chronic, without hemorrhage or perforation; Z88.2 Allergy status to sulfonamides; I25.10 Atherosclerotic heart disease of native coronary artery without angina pectoris; I25.5 Ischemic cardiomyopathy; Z90.710 Acquired absence of both cervix and uterus; Z98.890 Other specified postprocedural states; Z79.82 Long term (current) use of aspirin; Z79.899 Other long term (current) drug therapy
CPT/HCPCS: 0439T; 36415; 71275; 80048; 80053; 83735; 83880; 84100; 84443; 84484; 85025; 85610; 85730; 92928; 92978; 92979; 93005; 93010; 93458; 93970; 94660; 94760; 94762; 96374; 96375; 96376; 99152; 99153; C1725; C1753; C1760; C1769; C1874; C1887; C1894; C9600; J0153; J0461; J0583; J1644; J1940; J2250; J2272; J2405; J3010; Q9957; Q9967

== ENCOUNTER 2024-04-24 15:28 | Emergency (ER) | payer MEDICARE, OTHER ==
[2024-04-24 17:24] LABS: #Basophils 0.05 10x3/uL (0.0-0.2); #Eosinophils 0.13 10x3/uL (0.0-0.5); #Monocytes 0.77 10x3/uL (0.0-1.1); #Neutrophils 4.45 10x3/uL (1.5-8.4); %Basophils 0.7 % (0.0-2.0); %Eosinophils 1.7 % (0.0-6.0); %Lymphocytes 27.1 % (18.0-47.0); %Monocytes 10.4 % (0.0-10.0); %Neutrophils 59.8 % (40.0-75.0); Hematocrit 33.8 % (34.9-44.5); Hemoglobin 11.3 g/dL (12.0-15.5); Mean Corpuscular HGB CONC 33.4 g/dL (32.0-36.0); Mean Corpuscular Volume 92.9 fL (81.6-98.3); Mean Platelet Volume 9.4 fL (7.4-10.4); Platelet Count 296 10x3/uL (150-450); RBC Distribution Width 14.8 % (11.5-14.5); Red Blood Cell (RBC) Count 3.64 10x6/uL (3.90-5.03); White Blood Cell (WBC) Count 7.43 10x3/uL (3.5-10.5)
[2024-04-24 17:28] LABS: INR-International Normal Ratio 1.2; Prothrombin Time 12.5 sec (9.5-12.1)
[2024-04-24 17:35] LABS: ALT (SGPT) 10 U/L (Less than 34); AST (SGOT) 16 U/L (11-34); Albumin 3.9 g/dL (3.1-4.5); Alkaline Phosphatase 96 U/L (40-110); Anion Gap 15 mmol/L (10-20); BUN (Urea Nitrogen) 14 mg/dL (9.8-20.1); Bilirubin, Total 0.6 mg/dL (0.3-1.2); Calc. Creatinine Clearance 0 mL/min (70-130); Calcium 9.8 mg/dL (7.8-10.44); Carbon Dioxide 25 mmol/L (23-31); Chloride 108 mmol/L (98-107); Estimated GFR 74; Globulin 3.3 g/dL (2.4-3.5); Glucose 104 mg/dL (83-110); Potassium 3.7 mmol/L (3.5-5.1); Protein, Total 7.2 g/dL (5.8-8.1); Sodium 144 mmol/L (136-145)
== END 2024-04-24 18:03 | disposition home or self-care (01) ==
LOC: CSHERS 15:28
DX: Z00.01 Encounter for general adult medical examination with abnormal findings (principal); I10 Essential (primary) hypertension
CPT/HCPCS: 36415; 80053; 82274; 85025; 85610; 86850; 86900; 86901; 99283

== ENCOUNTER 2024-12-28 12:04 | Outpatient (CLI) | payer MEDICARE, OTHER ==
[~2024-12-28 12:04] MED LIST changes: +Iopamidol 300 61% 100 ML VIAL FS ONE; -Iopamidol 370 76% 100 ML VIAL ONE
[2024-12-28 14:25] LABS: Estimated GFR - POC 42.0
== END 2024-12-28 12:05 | disposition home or self-care (01) ==
LOC: EDBD → CSHCT 12:04
PROVIDERS: ATTEND Internal Medicine
DX: C83.34 Diffuse large B-cell lymphoma, lymph nodes of axilla and upper limb (principal); R91.1 Solitary pulmonary nodule; I25.9 Chronic ischemic heart disease, unspecified
CPT/HCPCS: 71260; 74177; 82565